=== PATIENT | female | born 1980 | race Caucasian/White ===

== ENCOUNTER → 2020-06-04 13:10 | Outpatient (CLI) | payer SELFPAY ==
--- NOTE | ~2020-06-04 | XR_ITS ---
EXAMINATION: XR cervical spine 4-5V EXAM DATE: 06/04/2020 13:54 INDICATION: Chronic migraines. Low back pain. TECHNIQUE: Cervical spine frontal, lateral, lateral swimmers, and open-mouth odontoid projections. S ubmentovertex projection. There are no prior studies for comparison. FINDINGS: There is no evidence of acute cervical fracture. The odontoid process is intact. Pre-dens space is normal. Prevertebral soft tissue is normal. There are no soft tissue abnormalities identi fied. Probable mild to moderate right facet arthropathy at C7-T1 as seen on the frontal projection. Otherwise no more than mild arthropathy. Vertebral body and disc heights are well-maintained. IMPRESSION: 1. Mild cervical spondylosis. Reviewed, dictated and finalized at location B. F STOCKER
--- NOTE | ~2020-06-04 | XR_ITS ---
XR lumbar spine min 4V DATE: 06/04/2020 13:54 INDICATION: Low back pain for 10 years TECHNIQUE: AP, lateral, bilateral oblique views and coned lateral lumbosacral view COMPARISON: None FINDINGS: There is normal alignment of the lumbar spine. Degenerative spurring at T12-L1. Severe degenerative disc disease at L5-S1. The lumbar interspaces otherwise are well preserved. No spondylolysis or spondylolisthesis. The included lower thoracic and lumbar pedicles are intact. No fracture or bone destruction. No spondylolysis or spondylolisthesis. IMPRESSION: Severe degenerative disc disease at L5-S1 Reviewed, dictated and finalized at location A. AL SCIENTIST
== END ==
DX: M99.11 Subluxation complex (vertebral) of cervical region (principal); M79.18 Myalgia, other site; M99.13 Subluxation complex (vertebral) of lumbar region; M47.892 Other spondylosis, cervical region; M51.37 Other intervertebral disc degeneration, lumbosacral region
CPT/HCPCS: 72050; 72110